=== PATIENT | female | born 1965 | race Caucasian/White ===

== ENCOUNTER 2019-10-23 15:46 | Emergency (ER) | payer OTHER ==
[2019-10-23 16:58] VITALS: BP 128/72
--- NOTE | 2019-10-23 17:31 | UC ---
Back Pain HPI - HPI Summary HPI Summary: 54 yo woman with history of lumbar disk herniation in the past, fell directly onto her tail bone at 07:20 when she slipped on ice at work, going down 3 steps on her buttock. She got thorough her work day by sticking to light exercise. She has tenderness in the right scapular area. She has increased pain with movement, especially sitting and getting in and out of her car. Previous WCB injury 10 months ago when she slipped on ice and fell, with L2-3 disk herniation. She has been using ibuprofen 800mg, gabapentin 800mg and baclofen regularly since that injury. Just returned to work [address] ago[address] [facility] [place]. - History of Current Complaint Chief Complaint: UCBackPain Stated Complaint: BACK/RT SHOULDER-WC Time Seen by Provider: 10/23/19 17:29 Hx Obtained From: Patient Onset/Duration: Sudden Onset, Lasting Hours Pain Intensity: 8 - Allergies/Home Medications Allergies/Adverse Reactions: Allergies Allergy/AdvReac Type Severity Reaction Status Date / Time No Known Allergies Allergy Verified 10/23/19 16:47 Home Medications: Home Medications Baclofen TAB* [Lioresal TAB*] 10 mg PO TID 10/23/19 [History Confirmed 10/23/19] Gabapentin CAP(*) [Neurontin 400 mg CAP(*)] 800 mg PO TID 10/23/19 [History Confirmed 10/23/19] Ibuprofen TAB* [Advil TAB*] 400 mg PO Q6H PRN 10/23/19 [History Confirmed ] PMH/Surg Hx/FS Hx/Imm Hx - Additional Past Medical History Additional PMH: L2-3 disk herniation 2019 Previously Healthy: Yes - Surgical History Surgical History: Yes Surgery Procedure, Year, and Place: hysterectomy - Family History Known Family History: Positive: Non-Contributory - Social History Occupation: Employed Full-time Alcohol Use: Occasionally Substance Use Type: None Smoking Status (MU): Former Smoker When Did the Patient Quit Smoking/Using Tobacco: 1998 Review of Systems All Other Systems Reviewed And Are Negative: Yes Constitutional: Positive: Negative Skin: Positive: Negative Eyes: Positive: Negative ENT: Positive: Negative Respiratory: Positive: Negative Cardiovascular: Positive: Negative Gastrointestinal: Positive: Negative Genitourinary: Positive: Negative Motor: Positive: Negative Neurovascular: Positive: Negative Physical Exam Appearance: Well-Appearing, Pain Distress - moderate, Obese Vital Signs: Initial Vital Signs Temp 98.1 F 10/23/19 16:49 Pulse 76 10/23/19 16:49 Resp 16 10/23/19 16:49 BP 128/72 10/23/19 16:49 Pulse Ox 98 10/23/19 16:49 ENT: Positive: Normal ENT inspection Neck: Positive: Supple, Nontender, No Lymphadenopathy Respiratory: Positive: Lungs clear, Normal breath sounds Cardiovascular: Positive: RRR, No Murmur Musculoskeletal Exam: Other - TTP over sacrum and coccyx. NO ecchymosis. antalgic gait Musculoskeletal: Positive: ROM Limited @ - lumbar spinFF to 30 degrees, cannot reach full extension, markded decrease in lateral bending both right and left., Other: - SLR to 90 degrees bilaterally. Psychological Exam: Normal Skin Exam: Normal Diagnostics - Radiology No standard instances Radiology Interpretation Completed By: ED Physician - No fracture seen Back Pain Course/Dx - Course Course Of Treatment: Off work , rest, add acetaminophen. She will follow up with Dr. Tirado for assessment. - Differential Dx/Diagnosis Differential Diagnosis/HQI/PQRI: Herniated Disc, Strain, Sprain, Other - coccygeal fracture Provider Diagnosis: Contusion of sacrum Discharge ED - Sign-Out/Discharge Documenting (check all that apply): Patient Departure All imaging exams completed and their final reports reviewed: No - Discharge Plan Condition: Stable Disposition: HOME Patient Education Materials: Contusion in Adults (ED) Forms: *Work Release Referrals: Holley Schultz MD [Primary Care Provider] - Additional Instructions: The radiologisit will review the xrays in the morning and you will be called if there is a change from my reading of "no fracture". Use ice to the area and a donut seat for relief of pain. Off work 2/ and 2/6 with follow up [address] Dr. Tirado as discussed. Continue current pain management as per your previous back injury. - Billing Disposition and Condition Condition: STABLE Disposition: Home
--- NOTE | 2019-10-24 10:40 | UC ---
- Progress Note Progress Note: xray report ,SACRUM/COCCYX 2+ VWS: IMPRESSION: NO EVIDENCE OF FRACTURE IF THE PATIENT'S SYMPTOMS PERSIST RECOMMEND FOLLOW UP Course/Dx - Diagnoses Provider Diagnoses: Contusion of sacrum Discharge ED - Sign-Out/Discharge Documenting (check all that apply): Patient Departure All imaging exams completed and their final reports reviewed: Yes - Discharge Plan Condition: Stable Disposition: HOME Patient Education Materials: Contusion in Adults (ED) Forms: *Work Release Referrals: Holley Schultz MD [Primary Care Provider] - Additional Instructions: The radiologisit will review the xrays in the morning and you will be called if there is a change from my reading of "no fracture". Use ice to the area and a donut seat for relief of pain. Off work 10/24 and 10/[address] follow up [address] Dr[address] Tirado as discussed. Continue current pain management as per your previous back injury. - Billing Disposition and Condition Condition: STABLE Disposition: Home
== END 2019-10-23 18:31 | disposition home or self-care (01) ==
LOC: UCCORT 15:46
DX: S30.0XXA Contusion of lower back and pelvis, initial encounter (principal); Z87.891 Personal history of nicotine dependence; W00.1XXA Fall from stairs and steps due to ice and snow, initial encounter; Y92.9 Unspecified place or not applicable; Y99.0 Civilian activity done for income or pay
CPT/HCPCS: 72220; 99201; G0463